=== PATIENT | male | born 1995 | race Caucasian/White ===

== ENCOUNTER 2016-07-06 14:04 | Inpatient (IN) | payer OTHER ==
--- NOTE | ~2016-07-06 | HP ---
Unit #: [id number] #: [id number] Patient: SUMIT LARSEN [id number] [place] [address] [id number] I MR#: [id number] NAME: SUMIT LARSEN ROOM: P209 Age: 21 Sex: M Admission Date: 07/06/2016 : 1995 Attending Physician: Juan David Benavidez M.D. Admitting Physician: Juan David Benavidez M.D. Primary Care Physician: No Primary Care Physician HISTORY AND PHYSICAL HISTORY OF PRESENT ILLNESS Sumit is a 21-year-old admitted to [address] [place] [address] because of his illicit substance abuse, which includes IV heroin and methamphetamine. PAST MEDICAL HISTORY Long history of illicit substance abuse to include IV drugs. PAST SURGICAL HISTORY Nothing reported. ALLERGIES Wellbutrin (rash). SOCIAL HISTORY He denies cigarettes and alcohol. Admits to a history of illicit substance abuse to include IV drugs. FAMILY HISTORY Medically noncontributory. REVIEW OF SYSTEMS CONSTITUTIONAL: No fever or chills. HEENT: Denies any sore throat, ear pain or runny nose. CARDIOVASCULAR: Denies chest pain, irregular heart rhythm or palpitations. CHEST: Denies shortness of breath or cough. No hemoptysis. GASTROINTESTINAL: Denies nausea, vomiting, diarrhea or chronic constipation. ENDOCRINE: Denies history of increased thirst or urination. No recent significant weight loss or gain. GENITOURINARY: Denies dysuria, frequency, or hematuria. SKIN: Denies any rashes. HEMATOLOGIC: Denies history of increased bleeding or bruising. MUSCULOSKELETAL: Denies any hot, swollen joints. No generalized muscle pain. NEUROLOGIC: Denies problems with vision or speech. No frequent, severe headaches. No numbness, tingling or weakness in any extremities. Denies loss of bladder or bowel control. CURRENT MEDICATIONS Detox protocol. PHYSICAL EXAMINATION GENERAL: Alert, well nourished, and in no apparent distress. Unit #: [id number] #: [id number] Patient: SUMIT LARSEN VITAL SIGNS: Blood pressure 110/60, heart rate 80, respirations 16, temperature 98.6, weight 170 pounds, and height 6 feet, 3 inches. SKIN: Warm and dry without rash or lesion. HEENT: Normocephalic. TMs not viewed. Oral and nasal passages clear. Conjunctivae clear. PERRLA. EOMs intact. NECK: Supple without lymphadenopathy or thyromegaly. HEART: Regular rate and rhythm without murmur. LUNGS: Clear. ABDOMEN: Soft, nontender. : Not done. EXTREMITIES: No evidence of cyanosis, clubbing or edema. Moves all without focal deficit. NEUROLOGICAL: Grossly within normal limits. Cranial Nerves: II: Visual regan are intact. III, IV AND : Extraocular movements are intact. Pupils are equal, round and reactive to light. V: Facial sensation is grossly normal. VII: Facial movements and expression are normal. VIII: Auditory acuity grossly intact. IX, X: Uvula is midline. Phonation is normal. XI: Patient shrugs shoulders and turns head normally. XII: Tongue protrudes in the midline. Sensory and Motor Function: Sensory and motor sensation is grossly normal. Motor: moves all extremities well. Coordination: Gait is normal. Deep Tendon Reflexes: Intact. IMPRESSION Psychiatric admission. RECOMMENDATIONS PSYCHIATRIC: Per psychiatrist. MEDICAL: I see no contraindication to participating in facility's activities. MEDICAL PROGNOSIS Good. MEDICAL CONDITION Stable. Dictated by... Germaine Torrez P.A.-C. for Jack Landon/geneva TD: 07/07/2016 07:13 JOB #: [id number] Unit #: [id number] #: [id number] Patient: SUMIT LARSEN HISTORY AND PHYSICAL Page 1 of 1 X Germaine Torrez HISTORY AND PHYSICAL
--- NOTE | ~2016-07-06 | PN ---
Unit #: [id number] #: [id number] Patient: SUMIT LARSEN [id number] [facility] [address] [place] [address] [id number] I MR#: [id number] NAME: SUMIT LARSEN ROOM: P209 Age: 21 Sex: M Admission Date: 07/06/2016 : 1995 Attending Physician: Juan David Benavidez M.D. Admitting Physician: Juan David Benavidez M.D. Primary Care Physician: Primary Care Physician Jazmín CABALLERO PROGRESS NOTES DATE 07/08/2016 DISCUSSION The patient continues to complain of dysphoric mood but is reporting reduction in suicidal ideation. He is expressing interest in beginning the chemical dependence treatment at the [facility] and has discussed with this the social science manager. Should he sustain progress and show suicidal ideation have resolved discharge could take place as early as tomorrow. Dictated by... Juan David Benavidez M.D. CB/omar TD: 07/08/2016 13:20 JOB #: [id number] [facility] PROGRESS NOTES Page 1 of 1 X Juan David Benavidez MD X PROGRESS NOTE
--- NOTE | ~2016-07-06 | PA ---
Unit #: [id number] #: [id number] Patient: SUMIT LARSEN [id number] [facility] [address] [place] [address] [id number] I MR#: [id number] NAME: SUMIT LARSEN ROOM: P209 Age: 21 Sex: M Admission Date: 07/06/2016 : 1995 Date of Assessment: 07/07/2016 Attending Physician: Juan David Benavidez M.D. Admitting Physician: Juan David Benavidez M.D. Primary Care Physician: Primary Care Physician No PSYCHIATRIC ASSESSMENT IDENTIFYING INFORMATION The patient is a 21-year-old white male admitted to the [address] [place] [address] Unit with a history of heroin and methamphetamine use. He was endorsing positive suicidal ideation at the time of admission. CHIEF COMPLAINT None given. INFORMANT(S) Chart. Patient cannot be aroused for interview. HISTORY OF PRESENT ILLNESS The patient is a 21-year-old white male with a history of opioid and methamphetamine abuse by means of intravenous administration. The patient reports positive suicidal ideation with plan to jump off the bridge or overdose at the time of admission. He is currently homeless. He has been in treatment in the past at residential facilities in [place] as well as [facility] but does not maintain sobriety. it does not appear as though he has been to this facility in the past. The patient reports that he has "lost everything." His family is against him and he is homeless. The patient reported yesterday that he was hitting himself and [employer] in fact dropped him off at this facility after he had made those suicidal threats. He is presently unemployed and homeless as noted previously. PAST PSYCHIATRIC HISTORY The patient attempted to overdose 3 years ago per his report and claims that he has tried to overdose on multiple previous occasions. PAST MEDICAL HISTORY Noncontributory. MEDICATIONS None. ALLERGIES Wellbutrin. FAMILY HISTORY Noncontributory. SOCIAL HISTORY The patient is currently homeless. He reports substance use as noted Unit #: [id number] #: [id number] Patient: SUMIT LARSEN previously and is not presently employed. MENTAL STATUS EXAMINATION Examination at this time reveals the patient to be a thin white male who is snoring loudly. Multiple attempts to arouse the patient are unsuccessful. ASSETS AND LIABILITIES The patient's assets are to be assessed. Liabilities: Lack of resources, homelessness. DIAGNOSTIC IMPRESSION 1. Dysthymic disorder. 2. Methamphetamine use disorder. 3. Opioid use disorder. TREATMENT PLAN The patient remains hospitalized for safety and stabilization. Routine detoxification protocol for opioids has been initiated. The patient will participate in appropriate order of milieu activities, and suicide precautions are in place. ESTIMATED LENGTH OF STAY 3 to 5 days. Followup will take place through the auspices of community mental health resources. Dictated by... Juan David Benavidez M.D. IJEOMA/wagner TD: 07/07/2016 15:19 JOB #: [id number] PSYCHIATRIC ASSESSMENT Page 1 of 1 X Juan David Benavidez MD X PSYCHIATRIC ASSESSMENT
--- NOTE | ~2016-07-06 | DS ---
Unit #: [id number] #: [id number] Patient: SUMIT LARSEN [id number] [facility] [address] [place] [address] [id number] I MR#: [id number] NAME: SUMIT LARSEN ROOM: P209 Age: 21 Sex: M Admission Date: 07/06/2016 : 1995 Discharge Date: 07/09/2016 Attending Physician: Juan David Benavidez M.D. Primary Care Physician: Primary Care Physician No DISCHARGE SUMMARY REASON FOR ADMISSION The patient is a 21-year-old white male, admitted to the [address] [place] [address] unit with a history of abuse of methamphetamine and heroin. He was admitted secondary to professed suicidal ideation. HOSPITAL COURSE The patient was admitted to the [address] [place] [address] unit and placed on routine detoxification protocol for opioids. He participated to no significant degree within the therapeutic milieu and exhibited absolutely no investment in treatment. The patient attempted to be discharged from the hospital on 07/08/2016 by threatening to start fights with other patients. He was placed on special observation for aggression. By 07/09/2016, the patient was in bright spirits. He exhibited no signs or symptoms of withdrawal and denied suicidal ideation. He requested discharge stating that he would go to the [facility], though with suspicion of this physician and staff that the patient was actually asking for discharge from the hospital, so that he continue to use drugs. Whatever the case, he did not meet criteria for involuntary hospitalization and discharge was ordered. FINAL DIAGNOSES Dysthymic disorder, methamphetamine use disorder, opioid use disorder. DISPOSITION ON DISCHARGE No psychotropic or other medications were ordered at the time of discharge. FOLLOWUP Followup will take place through the auspices of community mental health resources. PROGNOSIS The patient's prognosis is considered guarded. ADDENDUM The patient is instructed to contact this facility regarding results of pending hepatitis testing. The patient's liver enzymes are noted to be greatly elevated and it is the suspicion of this physician that the patient probably does suffer from hepatitis C. Dictated by... Juan David Benavidez M.D. Unit #: [id number] #: [id number] Patient: SUMIT LARSEN CB/modl TD: 07/09/2016 23:12 JOB #: [id number] DISCHARGE SUMMARY Page 1 of 1 X Juan David Benavidez MD DISCHARGE SUMMARY
[2016-07-07 09:49] LABS: ALBUMIN SERUM 3.9 g/dL (3.5-5.0); BILIRUBIN,TOTAL 0.7 mg/dL (0.2-2.0); BUN/CREATININE RATIO 7.14; CALCIUM SERUM 9.3 mg/dL (8.4-10.2); CREATININE SERUM 0.7 mg/dL (0.6-1.4); GLOM FILT RATE Estimated 135.9 mL/min (>60); POTASSIUM 4.3 mmol/L (3.5-5.1); PROTEIN TOTAL SERUM 7.1 g/dL (6.0-8.3)
[2016-07-07 09:55] LABS: URINE APPEARANCE CLEAR; URINE BILIRUBIN NEG (NEG); URINE BLOOD NEG (NEG); URINE COLOR YELLOW; URINE GLUCOSE NEG (NEG); URINE KETONE NEG (NEG); URINE LEUKOCYTE ESTERASE TRACE (NEG); URINE NITRATE NEG (NEG); URINE PROTEIN NEG (NEG); URINE SPECIFIC GRAVITY 1.014 (1.003-1.035); URINE UROBILINOGEN 0.2 MG/DL (NEG)
[2016-07-07 09:59] LABS: U HYALINE CASTS AUWI 0-2 /[LPF]; URBCS1 AUWI 0-2 /[HPF] (0-2); URINE BACTERIA AUWI NEG (NEGATIVE); URINE SQUAMOUS EPITHELIAL CELL NONE SEEN /[HPF]
[2016-07-07 10:20] LABS: BASOPHIL% 0.2 % (0-2.5); EOSINOPHIL# 0.2 X10e3 (0-0.7); EOSINOPHIL% 2.7 % (0.0-7.0); HEMATOCRIT 48.4 % (38.0-50.0); HEMOGLOBIN 15.9 gm/dL (13.0-16.0); LYMPHOCYTE# 3.1 X10e3 (1.0-3.5); LYMPHOCYTE% 47.5 % (17.0-45.0); MEAN CELL VOLUME 84.9 FL (83-96); MEAN CORPUSCULAR HEMOGLOBIN 27.9 PG (28-34); MEAN CORPUSCULAR HGB CONC 32.8 g/dL (30-36); MEAN PLATELET VOLUME 9.1 FL (6.5-11.5); MONOCYTE# 0.6 X10e3 (0-1.0); MONOCYTE% 9.8 % (3.0-12.0); NEUTROPHIL# 2.6 X10e3 (1.5-7.1); NEUTROPHIL% 39.8 % (40-75); PLATELET COUNT 249 X10e3 (140-420); RED CELL DISTRIBUTION WIDTH 14.9 % (11.0-15.5); WHITE BLOOD COUNT 6.5 X10e3 (4.0-10.5)
[2016-07-07 10:37] LABS: AMPHETAMINE POS (NEG); BARBITURATES NEG (NEG); BENZODIAZEPINES NEG (NEG); COCAINE NEG (NEG); MARIJUANA NEG (NEG); OPIATES NEG (NEG); TRICYCLIC ANTIDEPRESSANTS NEG (NEG); U METHADONE NEG (NEG)
[2016-07-07 10:55] LABS: DIFF IND YES
[2016-07-07 11:46] LABS: PLATELET ESTIMATE NORMAL (NORMAL); RBC NORMAL YES
[2016-07-11 10:26] LABS: HA AB IGM (HEPPAN) Nonreactive (()); HB CORE AB IGM (HEPPAN) Nonreactive (Nonreactive); HB S AG (HEPPAN) Nonreactive (Nonreactive); HEP C AB (HEPPAN) Reactive (Nonreactive)
== END 2016-07-09 14:46 | disposition home or self-care (01) | DRG 897 ==
LOC: P2S 14:04
PROVIDERS: Specialist
PROC: HZ2ZZZZ Detoxification Services for Substance Abuse Treatment (ICD-10-PCS; principal; 2016-07-06)
DX: F11.10 Opioid abuse, uncomplicated (principal); R45.851 Suicidal ideations; F15.10 Other stimulant abuse, uncomplicated; F34.1 Dysthymic disorder; Z88.8 Allergy status to other drugs, medicaments and biological substances; Z91.5 Personal history of self-harm
CPT/HCPCS: 80053; 80074; 80307; 81003; 85025; 86592; 87522; 87806

== ENCOUNTER 2016-08-22 12:00 | Inpatient (IN) | payer OTHER ==
--- NOTE | ~2016-08-22 | A ---
[facility] Nutrition Therapy DATE: 08/24/16 Patient: SUMIT LARSEN Physician: TACO Address: [address] [place] [address] Room/Bed: [address], Zip: [place] [address] Admit Date: 08/22/16 Date of : [birth year] Height: 6 3 Weight: [phone] NUTRITIONAL ASSESSMENT: REASON: UNINTENTIONAL WEIGHT LOSS PATIENT ADMITTED FOR METH AND HEROIN DETOX, DEPRESSION PMH: HEP C Anthropometrics: HT: 6'3", WT: 170#, BMI: 21.2 Labs: NO LABS AVAILABLE Meds: MILK OF MAG, MAG-AL Assessment: PATIENT IS A 21 Y/O MALE ADMITTED FOR METH AND HEROIN DETOX, AND DEPRESSION. PATIENT IS CURRENTLY UNEMPLOYED, HOMELESS, SMOKES 1 PPD, HAS DAILY METH USE, AND ABUSES HEROIN, COCAINE, SYNTHETIC MARIJUANA, AND ETOH. PATIENT HAS A HX OF INPATIENT CHEMICAL DEPENDENCY AND PSYCH TREATMENT, MOST RECENTLY IN JUNE 2016. UPON ADMIT PATIENT STATED A POOR APPETITE WITH A 40# WEIGHT LOSS X LAST SEVERAL MONTHS, AND IS ONLY SLEEPING 3HRS/NIGHT ON AVERAGE. WEIGHT HX PER [employer] SHOWS NO WEIGHT CHANGE SINCE LAST ADMIT 2 MONTHS AGO. NURSING REPORTS GOOD PO INTAKES. THERE ARE NO SKIN OR GI ISSUES NOTED ATT. PATIENT IS ON A REGULAR DIET WITH NO CAFFEINE AND RECEIVES LARGE PORTION ENTREES. Dx: UNINTENTIONAL WEIGHT LOSS R/T CURRENT CONDITION, DETOX AEB SELF-REPORTED WEIGHT LOSS AND DECREASED APPETITE, NUTRITIONAL RISK POINT Intervention: REGULAR DIET, LARGE PORTIONS, MEDS PER MD, DETOX, PSYCH Monitoring, Evaluation and Goals: 1. ADEQUATE PO INTAKES >50% OF MEALS 2. PREVENT, CORRECT MICRO/MACRO NUTRIENT DEFICIENCIES MONITOR: WEIGHTS, LABS, PO/FLUID INTAKES Recommendations: 1. CONTINUE REGULAR DIET WITH NO CAFFEINE AND LARGE PORTION ENTREES TOLERATED. OFFER SNACKS BETWEEN MEALS 2. ENCOURAGE ADEQUATE PO AND FLUID INTAKES 3. OBTAIN WEIGHTS ROUTINELY (EVERY 3-4 DAYS) RD TO F/U PER PROTOCOL AND PRN R/T PATIENT MILDLY COMPROMISED [facility] Nutrition Therapy DATE: 08/24/16 Patient: SUMIT LARSEN Physician: TACO Address: [address] [place] [address] Room/Bed: [address], Zip: [place] [address] Admit Date: 08/22/16 Date of : [birth year] Height: 6 3 Weight: [phone] Respectfully, ALOK DAWKINS, LIZETT, LD [facility] cc: client file
--- NOTE | ~2016-08-22 | CO ---
Unit #: [id number] #: [id number] Patient: SUMIT LARSEN [id number] [facility] [address] [place] [address] [id number] MR#: [id number] NAME: SUMIT LARSEN ROOM: [facility] Age: 21 Sex: M Admission Date: 08/22/2016 : 1995 Attending Physician: Juan David Benavidez M.D. Consultation Date: 08/23/2016 CONSULTATION REPORT ORDERING PROVIDER Dr. Benavidez. REASON FOR CONSULT Abnormal UA. On routine urinalysis, the patient was shown to have yeast in his urine. He denies any signs and symptoms. We will go ahead and treat him for the yeast with Diflucan 1 dose. Dictated by... Mirta Morton/victorina TD: 08/24/2016 01:36 JOB #: [id number] CONSULTATION REPORT Page 1 of 1 X MIRZA SALAZAR APRN CONSULTATION REPORT
--- NOTE | ~2016-08-22 | PN ---
Unit #: [id number] #: [id number] Patient: SUMIT LARSEN [id number] [facility] [address] [place] [address] [id number] I MR#: [id number] NAME: SUMIT LARSEN ROOM: [facility] Age: 21 Sex: M Admission Date: 08/22/2016 : 1995 Attending Physician: Juan David Benavidez M.D. Admitting Physician: Juan David Benavidez M.D. Primary Care Physician: Primary Care Physician Jazmín CABALLERO PROGRESS NOTES DATE 08/25/2016 DISCUSSION The patient is significantly sedated with initiation of Thorazine. I will discontinue this medication and place the patient is set on Zydis 5 mg q 8 hours p.r.n. anxiety due to psychosis. As I suspect that his psychotic symptoms should clear once the effects of amphetamine have subsided. Dictated by... Juan David Benavidez M.D. CB/fidel TD: 08/25/2016 20:47 JOB #: [id number] [facility] PROGRESS NOTES Page 1 of 1 X Juan David Benavidez MD PROGRESS NOTE
--- NOTE | ~2016-08-22 | PN ---
Unit #: [id number] #: [id number] Patient: SUMIT LARSEN [id number] [facility] [address] [place] [address] [id number] MR#: [id number] NAME: SUMIT LARSEN ROOM: [facility] Age: 21 Sex: M Admission Date: 08/22/2016 : 1995 Attending Physician: Juan David Benavidez M.D. Admitting Physician: Juan David Benavidez M.D. Primary Care Physician: Primary Care Physician Jazmín CABALLERO PROGRESS NOTES DATE 08/26/2016 DISCUSSION The patient reports that the auditory hallucinations and delusional thinking he had previously experienced have resolved. I will discontinue Thorazine today. The patient is working with his home health care social worker regarding possible post discharge chemical dependence residential treatment and I plan for discharge for tomorrow. Dictated by... Juan David Benavidez M.D. IJEOMA/kaiser TD: 08/26/2016 21:22 JOB #: [id number] [facility] PROGRESS NOTES Page 1 of 1 X Juan David Benavidez MD PROGRESS NOTE
--- NOTE | ~2016-08-22 | PN ---
Unit #: [id number] #: [id number] Patient: SUMIT LARSEN [id number] [facility] [address] [place] [address] [id number] MR#: [id number] NAME: SUMIT LARSEN ROOM: [facility] Age: 21 Sex: M Admission Date: 08/22/2016 : 1995 Attending Physician: Juan David Benavidez M.D. Admitting Physician: Juan David Benavidez M.D. Primary Care Physician: Primary Care Physician Jazmín CABALLERO PROGRESS NOTES DATE 08/24/2016 DISCUSSION The patient is now reporting positive paranoid thinking probably related to his abuse of methamphetamine. He is reporting that he is fearful that the [place], the [place] and alcoholic anonymous are "conspiring against him" and is he is complaining of severe anxiety. I will begin scheduled Thorazine 50 mg three times daily in hopes of addressing these symptoms. Dictated by... Juan David Benavidez M.D. CB/fidel TD: 08/24/2016 23:37 JOB #: [id number] [facility] PROGRESS NOTES Page 1 of 1 X Juan David Benavidez MD PROGRESS NOTE
--- NOTE | ~2016-08-22 | DS ---
Unit #: [id number] #: [id number] Patient: SUMIT LARSEN [id number] [facility] [address] [place] [address] [id number] I MR#: [id number] NAME: SUMIT LARSEN ROOM: [facility] Age: 21 Sex: M Admission Date: 08/22/2016 : 1995 Discharge Date: 08/27/2016 Attending Physician: Juan David Benavidez M.D. 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 HOSPITAL COURSE The patient was admitted to the [facility] unit and placed on suicide precautions. He did admit to abuse of heroin and methamphetamine and during his stay in the hospital, did report some auditory hallucinations and delusional thinking. Accordingly, he was begun on Thorazine 50 mg t.i.d. daily. This medication was over sedating and was discontinued on 08/25/2016. By that point, the patient's auditory hallucinations and delusional thinking had resolved. By 08/27/2016, the patient was in brighter spirits and had made arrangements to [facility] As per his request, discharge was ordered. FINAL DIAGNOSES Methamphetamine use disorder; opioid use disorder. DISPOSITION ON DISCHARGE The patient is discharged on no psychotropic or other medications. FOLLOWUP Followup will take place through the auspices of community mental health resources. PROGNOSIS The patient's prognosis is considered fair. Dictated by... Juan David Benavidez M.D. IJEOMA/victorina TD: 08/27/2016 17:55 JOB #: [id number] Unit #: [id number] #: [id number] Patient: SUMIT LARSEN DISCHARGE SUMMARY Page 1 of 1 X Juan David Benavidez MD X DISCHARGE SUMMARY
--- NOTE | ~2016-08-22 | PA ---
Unit #: [id number] #: [id number] Patient: SUMIT LARSEN [id number] [facility] [address] [place] [address] [id number] I MR#: [id number] NAME: SUMIT LARSEN ROOM: [facility] Age: 21 Sex: M Admission Date: 08/22/2016 : 1995 Date of Assessment: 08/23/2016 Attending Physician: Juan David Benavidez M.D. Admitting Physician: Juan David Benavidez M.D. Primary Care Physician: Primary Care Physician No PSYCHIATRIC ASSESSMENT REVISED REPORT IDENTIFYING INFORMATION The patient is a 21-year-old white male admitted to the [facility] Unit with increasing use of methamphetamine, heroin, hopelessness and thoughts of suicide. 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 INFORMANT(S) The patient, reliability is fair. HISTORY OF PRESENT ILLNESS The patient is a 21-year-old white male last admitted to this facility in late June of 2016. He is readmitted reporting positive suicidal ideation with a plan to overdose. The patient reports that he has been abusing multiple substances including "anything they will put in front of me. These include crack cocaine, heroin and methamphetamine. The patient also reports abuse of alcohol and synthetic marijuana. The patient states that because of his substance use he is estranged from his family and is currently homeless. He is expressing a wish to go to residential chemical dependence treatment at the [facility] in [place]. He reports that at the time of his last discharge he went out and "got high" immediately. For more complete history of present illness please refer to previous dictated notes. PAST PSYCHIATRIC HISTORY Reviewed no changes. PAST MEDICAL HISTORY No changes. MEDICATIONS None. ALLERGIES None. FAMILY HISTORY Reviewed no changes. Unit #: [id number] #: [id number] Patient: SUMIT LARSEN SOCIAL HISTORY Reviewed no changes. MENTAL STATUS EXAMINATION At this time reveals the patient to be a well-developed, well-nourished white male appearing her stated age. He is in no apparent physical distress at the time of examination. He is awake, alert and oriented in all spheres. His mood is dysphoric, his affect constricted. Speech is generally relevant and coherent. There are no gross deficits to memory or cognition noted. Intelligence is judged to be in the average range based on fund of knowledge. The patient is cooperative throughout the interview. He continues to endorse positive suicidal ideation. He denies homicidal ideation. He denies any psychotic symptoms. His judgement and insight appears to be reasonably intact. ASSETS AND LIABILITIES ASSETS: To be assessed. LIABILITIES: Lack of resources. DIAGNOSTIC IMPRESSION 1. Opioid use disorder. 2. Methamphetamine use disorder. 3. Dysthymic disorder. 4. Alcohol use disorder. 5. Cannabis use disorder. TREATMENT PLAN The patient remains hospitalized for safety and stabilization. A routine detoxification protocol for opioids has been initiated. The patient will participate in appropriate de luna and milieu activities and I ask a manager social work to see him regarding residential chemical dependence treatment options. ESTIMATED LENGTH OF STAY 3 to 5 days. *DATE OF ASSEMENT MODIFIED. Dictated by... Juan David Benavidez M.D. IJEOMA/fidel TD: 08/24/2016 04:23 JOB #: [id number] Unit #: [id number] #: [id number] Patient: SUMIT LARSEN PSYCHIATRIC ASSESSMENT Page 1 of 1 X Juan David Benavidez MD X PSYCHIATRIC ASSESSMENT
--- NOTE | ~2016-08-22 | HP ---
Unit #: [id number] #: [id number] Patient: SUMIT LARSEN [id number] [place] [address] [id number] MR#: [id number] NAME: SUMIT LARSEN ROOM: [facility] Age: 21 Sex: M Admission Date: 08/22/2016 : 1995 Attending Physician: Juan David Benavidez M.D. Admitting Physician: Juan David Benavidez M.D. Primary Care Physician: Primary Care Physician No HISTORY AND PHYSICAL HISTORY OF PRESENT ILLNESS The patient is a 21-year-old admitted to [facility] on 08/22/2016 for methamphetamine and polysubstance use. PAST MEDICAL HISTORY The patient denies. PAST SURGICAL HISTORY The patient denies. SOCIAL HISTORY He is unemployed and homeless. He smokes on pack of cigarettes daily and has current polysubstance abuse. FAMILY MEDICAL HISTORY Noncontributory. ALLERGIES Bupropion. CURRENT MEDICATIONS The patient is not on any home medications. REVIEW OF SYSTEMS CONSTITUTIONAL: No fever or chills. HEENT: Denies any sore throat, ear pain or runny nose. CARDIOVASCULAR: Denies chest pain, irregular heart rhythm or palpitations. CHEST: Denies shortness of breath or cough. No hemoptysis. GASTROINTESTINAL: Denies nausea, vomiting, diarrhea or chronic constipation. ENDOCRINE: Denies history of increased thirst or urination. No recent significant weight loss or gain. GENITOURINARY: Denies dysuria, frequency, or hematuria. SKIN: Denies any rashes. HEMATOLOGIC: Denies history of increased bleeding or bruising. MUSCULOSKELETAL: Denies any hot, swollen joints. No generalized muscle pain. NEUROLOGIC: Denies problems with vision or speech. No frequent, severe headaches. No numbness, tingling or weakness in any extremities. Denies loss of bladder or bowel control. PHYSICAL EXAM GENERAL: He is awake, alert and oriented in no acute distress. Unit #: [id number] #: [id number] Patient: SUMIT LARSEN VITAL SIGNS: Temperature 98.1, heart rate 95, respiration 20, blood pressure 113/62. HEIGHT: 6'3". WEIGHT: 170 pounds. SKIN: Warm and dry without rash or lesion. HEENT: Normocephalic. TMs not viewed. Oral and nasal passages clear. Conjunctivae clear. PERRLA. EOMs intact. NECK: Supple without lymphadenopathy or thyromegaly. HEART: Regular rate and rhythm without murmur. LUNGS: Clear. ABDOMEN: Soft, nontender. : Not done. EXTREMITIES: No evidence of cyanosis, clubbing or edema. Moves all without focal deficit. NEUROLOGICAL: Grossly within normal limits. Cranial Nerves: II: Visual regan are intact. III, IV AND : Extraocular movements are intact. Pupils are equal, round and reactive to light. V: Facial sensation is grossly normal. VII: Facial movements and expression are normal. VIII: Auditory acuity grossly intact. IX, X: Uvula is midline. Phonation is normal. XI: Patient shrugs shoulders and turns head normally. XII: Tongue protrudes in the midline. Sensory and Motor Function: Sensory and motor sensation is grossly normal. Motor: moves all extremities well. IMPRESSION 1. Psychiatric admission. 2. Polysubstance use. 3. Nicotine dependence. RECOMMENDATIONS Psychiatric per psychiatrist. MEDICAL: No contraindication to participate in facility activities. MEDICAL PROGNOSIS Good. MEDICAL CONDITION Stable. Dictated by... Mirta Morton/fidel TD: 08/24/2016 05:23 JOB #: [id number] Unit #: [id number] #: [id number] Patient: SUMIT LARSEN HISTORY AND PHYSICAL Page 1 of 1 X MIRZA SALAZAR APRN HISTORY AND PHYSICAL
[2016-08-23 11:43] LABS: URINE APPEARANCE TURBID; URINE BILIRUBIN NEG (NEG); URINE BLOOD NEG (NEG); URINE COLOR YELLOW; URINE GLUCOSE NEG (NEG); URINE KETONE NEG (NEG); URINE LEUKOCYTE ESTERASE 3+ (NEG); URINE NITRATE NEG (NEG); URINE PH 7.5 (5-8); URINE PROTEIN NEG (NEG); URINE SPECIFIC GRAVITY 1.018 (1.003-1.035)
[2016-08-23 11:46] LABS: URINE BACTERIA AUWI NEG (NEGATIVE); URINE SQUAMOUS EPITHELIAL CELL OCC /[HPF]; UWBCS1 AUWI 100-200 (0-5)
[2016-08-23 12:07] LABS: URINE AMORPHOUS SEDIMENT AMORP PHOSPHATES; URINE MUCUS PRESENT
[2016-08-23 12:08] LABS: URINE YEAST PRESENT
[2016-08-23 12:12] LABS: AMPHETAMINE POS (NEG); BARBITURATES NEG (NEG); BENZODIAZEPINES NEG (NEG); COCAINE NEG (NEG); MARIJUANA NEG (NEG); OPIATES POS (NEG); TRICYCLIC ANTIDEPRESSANTS NEG (NEG); U METHADONE NEG (NEG)
[2016-08-25 09:35] LABS: BASOPHIL% 0.6 % (0-2.5); EOSINOPHIL# 0.1 X10e3 (0-0.7); EOSINOPHIL% 1.7 % (0.0-7.0); HEMATOCRIT 42.7 % (38.0-50.0); HEMOGLOBIN 13.8 gm/dL (13.0-16.0); LYMPHOCYTE# 2.8 X10e3 (1.0-3.5); LYMPHOCYTE% 38.4 % (17.0-45.0); MEAN CELL VOLUME 82.7 FL (83-96); MEAN CORPUSCULAR HEMOGLOBIN 26.7 PG (28-34); MEAN CORPUSCULAR HGB CONC 32.3 g/dL (30-36); MEAN PLATELET VOLUME 8.9 FL (6.5-11.5); MONOCYTE# 0.7 X10e3 (0-1.0); MONOCYTE% 9.5 % (3.0-12.0); NEUTROPHIL# 3.7 X10e3 (1.5-7.1); NEUTROPHIL% 49.8 % (40-75); PLATELET COUNT 247 X10e3 (140-420); RED BLOOD COUNT 5.17 X10e (3.90-5.60); RED CELL DISTRIBUTION WIDTH 14.5 % (11.0-15.5); WHITE BLOOD COUNT 7.4 X10e3 (4.0-10.5)
[2016-08-25 09:48] LABS: DIFF IND NO
[2016-08-25 10:08] LABS: ALBUMIN SERUM 3.7 g/dL (3.5-5.0); BILIRUBIN,TOTAL 0.6 mg/dL (0.2-2.0); CREATININE SERUM 0.8 mg/dL (0.6-1.4); GLOM FILT RATE Estimated 128.6 mL/min (>60); POTASSIUM 4.3 mmol/L (3.5-5.1)
[2016-08-29 18:34] LABS: HA AB IGM (HEPPAN) Nonreactive (()); HB CORE AB IGM (HEPPAN) Nonreactive (Nonreactive); HB S AG (HEPPAN) Nonreactive (Nonreactive); HEP C AB (HEPPAN) Reactive (Nonreactive)
== END 2016-08-27 16:10 | DRG 897 ==
LOC: P1E 14:16 → POF 14:16 → P1E 16:28
PROVIDERS: Specialist
PROC: HZ2ZZZZ Detoxification Services for Substance Abuse Treatment (ICD-10-PCS; principal; 2016-08-22)
DX: F11.10 Opioid abuse, uncomplicated (principal); R45.851 Suicidal ideations; F15.10 Other stimulant abuse, uncomplicated; F34.1 Dysthymic disorder; F10.10 Alcohol abuse, uncomplicated; F12.10 Cannabis abuse, uncomplicated; Z59.0 Homelessness; F17.210 Nicotine dependence, cigarettes, uncomplicated; Z88.8 Allergy status to other drugs, medicaments and biological substances
CPT/HCPCS: 80053; 80074; 80307; 81003; 84703; 85025; 87522; 87806